=== PATIENT | male | born 1990 | race Two or more races ===

== ENCOUNTER → 2016-11-01 | Day surgery (SDC) | payer OTHER ==
[~2016-11-01] VITALS: Ht 182.9 cm; Wt 100.6 kg
[~2016-11-01] MED LIST: AMBIEN10 MG PO; ATARAX25 MG PO; LITHOBID300 MG PO; PROTONIX40 MG PO
== END | disposition disaster alternative care site (69) ==
LOC: GPOC 10-31 14:00 → GEND 07:45 → GPOC 14:00
PROC: 0DB68ZX Excision of Stomach, Via Natural or Artificial Opening Endoscopic, Diagnostic (ICD-10-PCS; principal; 2016-11-01)
DX: K92.0 Hematemesis (principal); K31.89 Other diseases of stomach and duodenum; F17.210 Nicotine dependence, cigarettes, uncomplicated; Z79.899 Other long term (current) drug therapy
CPT/HCPCS: J2001; J7030